=== PATIENT | female | born 1995 | race Caucasian/White ===

== ENCOUNTER 2022-01-24 12:59 | Emergency (ER) | payer OTHER ==
[~2022-01-24] VITALS: Ht 154.9 cm; Wt 65.8 kg
[2022-01-24 13:11] VITALS: BP 156/110
[2022-01-24] MEDS ORDERED: KETOROLAC 30 MG/ML VIAL IVP ONE (13:35)
[2022-01-24] MEDS ORDERED: NACL 0.9% 1,000 ML IV SCH (13:35)
--- NOTE | 2022-01-24 13:45 | NUR ---
LAB AT BEDSIDE.
[2022-01-24 13:57] LABS: BASOPHILS # (AUTO) 0.1 K/uL (0.00-0.22); BASOPHILS % (AUTO) 0.6 % (0.0-2.0); EOSINOPHILS # (AUTO) 0.1 K/uL (0-0.4); EOSINOPHILS % (AUTO) 1.5 % (0.0-4.0); HEMATOCRIT 38.4 % (36-48); HEMOGLOBIN 13.2 g/dL (12.0-16.0); LYMPHOCYTES # (AUTO) 2.7 K/uL (2.5-16.5); LYMPHOCYTES % (AUTO) 28.2 % (20.5-51.1); MEAN CORPUSCULAR HEMOGLOBIN 30 pg (27-31); MEAN CORPUSCULAR HGB CONC 34 g/dL (33-37); MEAN CORPUSCULAR VOLUME 86.2 fL (80-94); MONOCYTES # (AUTO) 0.6 K/uL (0.8-1.0); MONOCYTES % (AUTO) 6.3 % (1.7-9.3); NEUTROPHILS % (AUTO) 63.4 % (42.2-75.2); PLATELET COUNT (AUTO) 270 K/uL (140-450); RED BLOOD CELL COUNT(AUTO) 4.46 MIL/uL (4.20-5.40); RED CELL DISTRIBUTION WIDTH 13.5 % (11.6-13.7); WHITE BLOOD COUNT (AUTO) 9.5 K/uL (4.8-10.8)
--- NOTE | 2022-01-24 14:01 | NUR ---
26 Y/O F BIBA C/O LOWER ABDOMIAL PAIN X 2.5 WEEKS AND C/O HEMATURIA , C/O COUGH X 9 MONTHS. PT SMOKE METH LAST NIGHT. PER EMS BLOOD SUHGAR 130. [facility] PMH: STAGE 2 LIVER CANCER, DM
[2022-01-24 14:10] LABS: ALBUMIN 3.7 g/dL (3.4-5.0); ANION GAP 12.7 (8-16); CARBON DIOXIDE 24.2 mmol/L (21-32); CREATININE 0.8 mg/dL (0.6-1.3); POTASSIUM 3.9 mmol/L (3.5-5.1); TOTAL BILIRUBIN 0.2 mg/dL (0.0-1.0)
--- NOTE | 2022-01-24 14:12 | NUR ---
DR STRANGE AT BEDSIDE.
[2022-01-24] MEDS ORDERED: ONDANSETRON 4 MG/2 ML VIAL IVP ONE (14:15)
[2022-01-24] MEDS ORDERED: MORPHINE SULFATE 4 MG/ML SYR IVP ONE (14:15)
--- NOTE | 2022-01-24 14:36 | NUR ---
PT TO CT SCAN [facility]IA [facility].
[2022-01-24 14:48] LABS: APPEARANCE,URINE CLEAR (CLEAR); BILIRUBIN,URINE NEGATIVE (NEGATIVE); BLOOD, URINE NEGATIVE (NEGATIVE); LEUKOCYTE ESTERASE ,URINE NEGATIVE (NEGATIVE); NITRITE, URINE NEGATIVE (NEGATIVE); UGLUCOSE NEGATIVE (NEGATIVE)
[2022-01-24 15:05] LABS: COLOR,URINE STRAW (YELLOW)
[2022-01-24] MEDS ORDERED: PRED20TA5 PO (15:49)
[2022-01-24] MEDS ORDERED: ALBU0.0912 INH (15:49)
[2022-01-24] MEDS ORDERED: ONDA8TAB87 PO (15:49)
[2022-01-24] MEDS ORDERED: IBUP-2213 PO (15:49)
[2022-01-24 16:04] VITALS: BP 125/86
--- NOTE | 2022-01-24 16:05 | NUR ---
Patient discharged with v/s stable. Written and verbal after care instructions given and explained. Patient alert, oriented and verbalized understanding of instructions. Ambulatory with steady gait. All questions addressed prior to discharge. ID band removed. Patient advised to follow up with PMD. Rx of ALBUTEROL SULFATE, IBUPROFEN, ONDANSETRON HCI, PREDNISONE given. Opportunity to ask questions provided and answered.
--- NOTE | 2022-01-24 19:35 | NUR ---
The patient's care was reviewed and supervised by ePnny Luu RN.
== END 2022-01-24 16:05 | disposition home or self-care (01) ==
LOC: MED 12:59
DX: R11.2 Nausea with vomiting, unspecified (principal); R10.84 Generalized abdominal pain; M54.50 Low back pain, unspecified; R19.7 Diarrhea, unspecified; E11.9 Type 2 diabetes mellitus without complications; F17.200 Nicotine dependence, unspecified, uncomplicated; Z85.05 Personal history of malignant neoplasm of liver; Z98.890 Other specified postprocedural states
CPT/HCPCS: 36415; 74176; 80053; 81003; 81025; 82948; 83690; 85025; 96361; 96374; 96375; 99284; J1885; J2270; J2405; J7030